=== PATIENT | female | born 1965 | race Caucasian/White ===

== ENCOUNTER 2023-06-22 11:25 | Emergency (ER) | payer OTHER, SELFPAY ==
[2023-06-22 11:37] VITALS: BP 163/93; PULSE 96; RESP 18; TEMP 36.9; O2SAT 97; BMI 35.5
--- NOTE | 2023-06-22 12:13 | ED_ITS ---
HPI - General Adult General Time Seen by Provider: 12:13 Date Seen: 06/22/23 Chief complaint: Laceration/Wound Stated complaint: Lac L hand Time Seen by Provider: 06/22/23 11:28 Source: patient Mode of arrival: ambulatory Limitations: no limitations History of Present Illness HPI narrative: Patient is a 57 year white female who has a knife injury at her work place to her left dorsum of the hand near the thumb. Good amount of bleeding initially, she is uncertain of last tetanus, is otherwise pretty healthy, has had no wound healing problems. This is a use knife. The patient is able move her hand fully. Related Data Home Medications Medication Instructions Recorded Confirmed aripiprazole 10 mg tablet (Abilify) 10 mg PO DAILY 06/22/23 06/22/23 bupropion HCl 100 mg tablet 100 mg PO BID 06/22/23 06/22/23 desvenlafaxine succinate 100 mg 100 mg PO DAILY 06/22/23 06/22/23 tablet,extended release 24 hr (Pristiq) rosuvastatin 20 mg tablet (Crestor) 20 mg PO DAILY 06/22/23 06/22/23 Previous Rx's Medication Instructions Recorded cephalexin 500 mg capsule 500 mg PO QID #20 caps 06/22/23 Allergies Allergy/AdvReac Type Severity Reaction Status Date / Time No Known Drug Allergies Allergy Verified 06/22/23 11:40 Review of Systems Status of ROS: Reports: 6 or more systems reviewed and unremarkable except as noted in History and below Narrative: Full use of the left hand Exam Narrative: Exam Narrative: Objective in general patient apparent distress Vital signs show slightly elevated blood pressure Her left hand shows a 1.5 cm puncture wound that has pretty good hemostasis there was a little bit of muscle protruding disc to the corner of the laceration she has normal function of her index and thumb normal opposition of her little finger and thumb normal wrist extension flexion, and normal spreading of the hand and normal strength with opposing her fingers next to each other. Normal sensation in the index and thumb Const: Vital Signs, click to edit/add: Vital Signs - 24 hr 06/22/23 11:37 Temperature 98.5 F Pulse Rate [Right Pulse Oximeter] 96 Respiratory Rate 18 Blood Pressure [Ri ght Upper Arm] 163/93 H Pulse Oximetry 97 Oxygen Delivery Me thod Room Air Course Vital Signs Vital signs: Initial Vital Signs Temperature 98.5 F 06/22/23 11:37 Temperature Source Temporal Artery Scan 06/22/23 11:37 Pulse Rate 96 06/22/23 11:37 Respiratory Rate 18 06/22/23 11:37 Blood Pressure 163/93 H 06/22/23 11:37 Blood Pressure Mean 116 H 06/22/23 11:37 Blood Pressure Position Sitting 06/22/23 11:37 Pulse Oximetry 97 06/22/23 11:37 Oxygen Delivery Method Room Air 06/22/23 11:37 Vital Signs Temperature 98.5 F 06/22/23 11:37 Pulse Rate 96 06/22/23 11:37 Respiratory Rate 18 06/22/23 11:37 Blood Pressure 163/93 H 06/22/23 11:37 Pulse Oximetry 97 06/22/23 11:37 Oxygen Delivery Method Room Air 06/22/23 11:37 Temperature 98.5 F 06/22/23 11:37 Pulse Rate 96 06/22/23 11:37 Respiratory Rate 18 06/22/23 11:37 Blood Pressure 163/93 H 06/22/23 11:37 Pulse Oximetry 97 06/22/23 11:37 Oxygen Delivery Method Room Air 06/22/23 11:37 Medical Decision Making MDM Narrative Medical decision making narrative: [age] year white female with a laceration to her left dorsum of the hand laterally over the muscle belly of the dorsum of the hand. After careful irrigation 1% xylocaine without epinephrine used for anesthesia is unable to see any significant muscle or tendon disruption the wound was closed with 3-0 simple updated sutures normal extension flexion of the thumb and index finger normal spreading the hand and contracture of the hand normal fist making. Would recommend she get suture removal in 7 days, would recommend recheck with orthopedics as needed with any concern about hand function although I do not detect any neurovascular or tendon injury Will give Keflex 500 q.i.d. x5 days, update her tetanus if needed. She was comfortable plan. Recommend off work today, keep covered if she is going to use a hammer use light duty until the stitches are out. Discharge Plan Discharge Clinical Impression: Laceration Patient Disposition: Home w/ Parent or Adult Condition: Improved Instructions: Care For Your Stitches (ED), Laceration (ED), Stitches Removal (ED) Additional Instructions: light activity, off work today, keflex x 5 days, suture removal 7 days. return sooner as needed Activity Level: Light activity Discharge Diet: Regular Prescriptions: New cephalexin 500 mg capsule 500 mg PO QID Qty: 20 0RF No Action bupropion HCl 100 mg tablet 100 mg PO BID desvenlafaxine succinate [Pristiq] 100 mg tablet extended release 24 hr 100 mg PO DAILY rosuvastatin [Crestor] 20 mg tablet 20 mg PO DAILY aripiprazole [Abilify] 10 mg tablet 10 mg PO DAILY Stand Alone Forms: [employer] Info Instructions
== END 2023-06-22 12:44 | disposition home or self-care (01) ==
LOC: ED 12:18
PROVIDERS: Emergency Provider Family Medicine
DX: S61.412A Laceration without foreign body of left hand, initial encounter (principal); W26.0XXA Contact with knife, initial encounter
CPT/HCPCS: 12001; 99283; 99284